=== PATIENT | male | born 1980 | race Caucasian/White ===

== ENCOUNTER 2022-06-14 12:54 | Emergency (ER) | payer SELFPAY ==
[2022-06-14] MEDS ORDERED: Morphine 4 MG/ML VIAL ONE (13:37)
[2022-06-14] MEDS ORDERED: Ondansetron PF 4 MG/2 ML Vial ONE (13:37)
[2022-06-14 13:51] LABS: #Eosinphils 0.1 thou/uL (0.0-0.7); #Lymphocytes 2.9 thou/uL (1.20-3.40); #Monocytes 0.6 thou/uL (0.11-0.59); #Neutrophils 5.4 thou/uL (1.40-6.50); %Basophils 0.5 % (0.0-1.0); %Eosinophils 0.9 % (0.0-10.0); %Lymphocytes 31.9 % (21.0-51.0); %Monocytes 6.8 % (0.0-10.0); Hemoglobin 14.6 g/dL (14.0-18.0); Mean Corpuscular HGB CONC 33.3 g/dL (32.0-36.0); Mean Corpuscular Hemoglobin 29.7 pg (27.0-31.0); Mean Platelet Volume 7.1 fL (7.4-10.4); Platelet Count 272 thou/uL (130-400); RBC Distribution Width 11.8 % (11.5-14.5); Red Blood Cell (RBC) Count 4.91 mill/uL (4.70-6.10)
[2022-06-14 14:13] LABS: ALT (SGPT) 16 U/L (8-55); AST (SGOT) 15 U/L (5-34); Albumin 4.1 g/dL (3.5-5.0); Alkaline Phosphatase 73 U/L (40-110); Anion Gap 14 mmol/L (10-20); BUN (Urea Nitrogen) 8 mg/dL (8.9-20.6); Bilirubin, Total 0.3 mg/dL (0.2-1.2); CK (CPK) 131 U/L (30-200); Calc. Creatinine Clearance 0 mL/min (70-130); Carbon Dioxide 23 mmol/L (22-29); Chloride 106 mmol/L (98-107); Estimated GFR 112; Globulin 2.5 g/dL (2.4-3.5); Glucose 98 mg/dL (70-105); Lipase 29 U/L (8-78); Potassium 4.1 mmol/L (3.5-5.1); Protein, Total 6.6 g/dL (6.0-8.3); Sodium 139 mmol/L (136-145)
[2022-06-14] MEDS ORDERED: Lidocaine Viscous Sol 2% 15 ml UD Cup ONE (14:35)
[2022-06-14] MEDS ORDERED: Mag-Al 1200 mg/1200 mg/30 ML UDCUP ONE (14:35)
[2022-06-14] MEDS ORDERED: Ketorolac Tromethamine 30 MG/ML VIAL ONE (14:42)
== END 2022-06-14 15:50 | disposition home or self-care (01) ==
LOC: ERS 12:54
DX: R07.89 Other chest pain (principal); F17.220 Nicotine dependence, chewing tobacco, uncomplicated
CPT/HCPCS: 71045; 80053; 82550; 83690; 84484; 85025; 85379; 93005; 96374; 96375; J1885; J2270; J2405

== ENCOUNTER 2022-06-14 23:35 | Observation (INO) | payer SELFPAY ==
[2022-06-14] MEDS ORDERED: Nitroglycerin 0.4 MG TAB 1 EACH ONE (23:58)
[2022-06-14] MEDS ORDERED: Aspirin Chewable 81 MG TAB ONE (23:58)
[2022-06-15] MEDS ORDERED: Nitroglycerin 0.4 MG TAB 1 EACH ONE ×2 (00:09→00:19)
[2022-06-15] MEDS ORDERED: Ondansetron PF 4 MG/2 ML Vial ONE (00:32)
[2022-06-15] MEDS ORDERED: Morphine 4 MG/ML VIAL ONE ×2 (00:32→01:30)
[2022-06-15] MEDS ORDERED: Acetaminophen 325 MG TAB ONE (04:45)
[2022-06-15] MEDS ORDERED: Acetaminophen 325 MG TAB PO PRN ×2 (05:00→05:04)
[2022-06-15] MEDS ORDERED: Ondansetron ODT 4 MG TAB SL PRN (05:00)
[2022-06-15] MEDS ORDERED: Ondansetron PF 4 MG/2 ML Vial IVP PRN (05:00)
[2022-06-15 05:16] LABS: Hemoglobin A1c 5.5 % (4.0-6.0)
[2022-06-15 05:34] LABS: Cardiac Risk 3.5 (Less than 4.5)
[2022-06-15 05:39] LABS: Troponin I Less than 0.010 ng/mL (< 0.028)
[2022-06-15 07:40] LABS: Troponin I Less than 0.010 ng/mL (< 0.028)
[2022-06-15] MEDS ORDERED: Cyclobenzaprine 10 MG TAB PO PRN (08:21)
[2022-06-15] MEDS ORDERED: Cyclobenzaprine 10 MG TAB ONE (08:27)
[2022-06-15] MEDS: Sucralfate 1 GM TAB PO SCH ×2 (08:30→13:07)
[2022-06-15] MEDS ORDERED: Ketorolac Tromethamine 30 MG/ML VIAL ONE (10:12)
[2022-06-15] MEDS ORDERED: Ketorolac Tromethamine 30 MG/ML VIAL IVP SCH (10:15)
[2022-06-15] MEDS ORDERED: Iopamidol 370 76% 100 ML VIAL ONE (12:00)
[2022-06-15 13:00] VITALS: BP 114/62; TEMP 97.9
== END 2022-06-15 13:25 | disposition home or self-care (01) ==
LOC: ERS 23:35 → ERHOLD 06-15 04:06
PROVIDERS: ADMIT Family Medicine; ATTEND Family Medicine
DX: R07.89 Other chest pain (principal); F10.10 Alcohol abuse, uncomplicated; F17.220 Nicotine dependence, chewing tobacco, uncomplicated; Z20.822 Contact with and (suspected) exposure to COVID-19
CPT/HCPCS: 36415; 71275; 74174; 80061; 83036; 84443; 84484; 93005; 96374; 96375; 96376; G0378; J1885; J2270; J2405; Q9967; U0003; U0005

== ENCOUNTER 2024-08-21 12:21 | Emergency (ER) | payer SELFPAY ==
[2024-08-21] MEDS ORDERED: Ketorolac Tromethamine 30 MG (1 mL) VIAL ONE (12:40)
[2024-08-21 13:03] LABS: #Basophils 0.06 10x3/uL (0.0-0.2); %Basophils 0.7 % (0.0-1.0); %Eosinophils 2.5 % (0.0-10.0); %Lymphocytes 39.4 % (21.0-51.0); %Monocytes 7.8 % (0.0-10.0); %Neutrophils 49.4 % (42.0-75.0); Hematocrit 43.7 % (42.0-52.0); Hemoglobin 14.7 g/dL (14.0-18.0); Mean Corpuscular HGB CONC 33.6 g/dL (32.0-36.0); Mean Corpuscular Hemoglobin 29.6 pg (27.0-31.0); Mean Corpuscular Volume 87.9 fL (78.0-98.0); Mean Platelet Volume 9.5 fL (7.4-10.4); Platelet Count 291 10x3/uL (130-400); RBC Distribution Width 12.9 % (11.5-14.5); Red Blood Cell (RBC) Count 4.97 mill/uL (4.70-6.10)
[2024-08-21 13:19] LABS: ALT (SGPT) 19 U/L (8-55); AST (SGOT) 19 U/L (5-34); Albumin 3.9 g/dL (3.5-5.0); Alkaline Phosphatase 86 U/L (40-110); Anion Gap 11 mmol/L (10-20); BUN (Urea Nitrogen) 8 mg/dL (8.9-20.6); Bilirubin, Total 0.3 mg/dL (0.2-1.2); CK (CPK) 112 U/L (30-200); Calc. Creatinine Clearance 0 mL/min (70-130); Calcium 9.3 mg/dL (7.8-10.44); Carbon Dioxide 23 mmol/L (22-29); Chloride 102 mmol/L (98-107); Estimated GFR 112; Glucose 93 mg/dL (70-105); Potassium 3.6 mmol/L (3.5-5.1); Protein, Total 6.9 g/dL (6.0-8.3); Sodium 132 mmol/L (136-145)
== END 2024-08-21 14:17 | disposition home or self-care (01) ==
LOC: ERS 12:21
DX: M79.605 Pain in left leg (principal); F17.220 Nicotine dependence, chewing tobacco, uncomplicated; W55.12XA Struck by horse, initial encounter
CPT/HCPCS: 36415; 80053; 82550; 83735; 85025; 96372; J1885